=== PATIENT | male | born 1995 | race Two or more races ===

== ENCOUNTER 2017-07-04 05:48 | Emergency (ER) | payer MEDICAID ==
[~2017-07-04] VITALS: Ht 165.1 cm; Wt 57.0 kg
[2017-07-04 08:20] VITALS: BP 116/84
== END 2017-07-04 09:50 | disposition home or self-care (01) ==
LOC: ER 05:48
DX: Z76.0 Encounter for issue of repeat prescription (principal); Z53.21 Procedure and treatment not carried out due to patient leaving prior to being seen by health care provider
CPT/HCPCS: 99283; Z7610

== ENCOUNTER 2017-07-04 12:25 | Emergency (ER) | payer MEDICAID ==
[~2017-07-04] VITALS: Ht 175.3 cm; Wt 52.0 kg
[2017-07-04 12:29] VITALS: BP 109/75
== END 2017-07-04 19:30 | disposition left against medical advice (07) ==
LOC: ER 12:33
DX: F41.9 Anxiety disorder, unspecified (principal); Z53.21 Procedure and treatment not carried out due to patient leaving prior to being seen by health care provider